=== PATIENT | female | born 2000 | race Two or more races ===

== ENCOUNTER 2023-08-02 20:14 | Outpatient (REF) | payer OTHER, SELFPAY ==
[2023-08-08 13:07] LABS: Age Gdln ACOG Testing Note (.); IGP, rfx Aptima HPV ASCU Note (.)
== END 2023-08-02 20:15 | disposition home or self-care (01) ==
LOC: LAB 20:14
PROVIDERS: Visit Provider Physician Assistant
DX: Z01.419 Encounter for gynecological examination (general) (routine) without abnormal findings (principal)
CPT/HCPCS: G0145

== ENCOUNTER 2023-12-27 15:34 | Outpatient (OUT) | payer OTHER, SELFPAY ==
[2023-12-29 07:10] LABS: HBsAg Screen Negative (Negative)
[2023-12-29 08:13] LABS: HIV Ab/p24 Ag Screen Non Reactive (Non Reactive)
[2023-12-29 11:10] LABS: Rapid Plasma Reagin, Quant Non Reactive titer (NonRea<1:1)
== END 2023-12-27 15:35 | disposition home or self-care (01) ==
LOC: LAB 15:36
PROVIDERS: Visit Provider Obstetrics & Gynecology
DX: Z20.2 Contact with and (suspected) exposure to infections with a predominantly sexual mode of transmission (principal)
CPT/HCPCS: 36415; 86592; 87340; 87389

== ENCOUNTER 2024-09-23 20:53 | Outpatient (REF) | payer OTHER, SELFPAY ==
--- OUTSIDE RECORDS SUMMARY | 2024-01-24 05:45 | XMS_ITS ---
Author Organization [facility] in [place] Address [address] [place] [address] Care Team Providers Care Cigarette Machine Operator Name Role Phone Maria Esther PARK, [place] Primary Care Provider Michelle Burns [facility] [phone] REASON FOR VISIT mts 6mo acne Encounters Encounter Location Date Provider Diagnosis [facility] [address] [place] [phone] 01/24/2024 Michelle Barrios Plan Of Treatment No Information Progress Notes * Hunter REYESB:2000 ([age] yo F)Acc No.[id number]:01/24/2024 UNLOCKED PROGRESS NOTE Established Patient: Klaudia FOSS Provider: Ana Paula Barrios PA-C :2000 A ge:23 Y S ex:Female Date:01/24/2024 Address:[address] [place] [address] [id number] Pcp:Shawnee Mayo MD Subjective: * Chief Complaints: * 1 . Mts 6mo acne. * Medical History: Objective: * Vitals: Assessment: Plan: * Treatment: * * Electronic signature of Shauna Barrios PA-C, [id number] on 09/23/2024 at 08:56 PM EDT Sign off status: Pending Visit Status: L ATE CANC (Late Cancel) * Provider: Ana Paula Barrios PA-C Date: 1 Generated for Vazquez osborne/Mitch/Pa on: 0 09/23/2024 08:56 PM EDT
--- OUTSIDE RECORDS SUMMARY | 2024-05-10 11:00 | XMS_ITS ---
Author Organization [facility] vices Address [address] [place] [phone] Care Team Providers Care Process Pumper Name Role Phone Rl Mary Jo Regalado [phone] REASON FOR VISIT CANCEL- Rest #18- ODL,B Social History Sex Assigned At : Social History Observation Description Sex Assigned At Female Encounters Encounter Location Date Provider Diagnosis [facility] [address] [place] [phone] 05/10/2024 Mary Jo Shine Plan Of Treatment Next Appt Details Provider Name:Elsa Duke sigrid, 12/12/2024 10:15:00 AM, [address] [place], [place], [phone], Progress Notes * Dior REYESJoseB:2000 ([age] yo F)Acc No.[id number]:05/10/2024 Patient: Klaudia FOSS Provider: Ilda Shine DMD :2000 A ge:23 Y S ex:Female Date:05/10/2024 Address:[address] [place], [place] [id number] Subjective: * Chief Complaints: * 1 . CANCEL- Rest #18- ODL,B. * Medical History: Objective: * Vitals: Assessment: Plan: * Treatment: * Billing Information: * Visit Code: * Procedure Codes: * Electronic signature of Tamika Shine DMD on 09/23/2024 at 08:56 PM EDT Sign off status: Pending * Provider: Ilda Shine DMD Date: 0 05/10/2024 Generated for Vazquez osborne/Mitch/Pa on: 0 09/23/2024 08:56 PM EDT
--- OUTSIDE RECORDS SUMMARY | 2024-05-16 08:30 | XMS_ITS ---
Author Organization [facility] in [place] Address [address] [place] [address] Care Team Providers Care Director Furniture Name Role Phone Maria Esther PARK, [place] Primary Care Provider Michelle Burns Unavailable [phone] REASON FOR VISIT mts A0008 Encounters Encounter Location Date Provider Diagnosis [facility] [address] [place] [phone] 05/16/2024 Michelle Barrios Plan Of Treatment No Information Progress Notes * Hunter REYESB:2000 ([age] yo F)Acc No.[id number]:05/16/2024 UNLOCKED PROGRESS NOTE Patient: Klaudia FOSS Provider: Ana Paula Barrios PA-C :2000 A ge:23 Y S ex:Female Date:05/16/2024 Address:[address] [place] [address] [id number] Pcp:Shawnee Mayo MD Check Out:12:19 PM EST Subjective: * Chief Complaints: * 1 . mts A0008. * Medical History: Objective: * Vitals: Assessment: Plan: * Treatment: * * Electronic signature of Shauna Barrios PA-C, [id number] on 09/23/2024 at 08:56 PM EDT Sign off status: Pending Visit Status: Phliipp HK (Check Out) * Provider: Ana Paula Barrios PA-C Date: 0 05/16/2024 Generated for Vazquez osborne/Mitch/Pa on: 0 09/23/2024 08:56 PM EDT
--- OUTSIDE RECORDS SUMMARY | 2024-07-29 08:45 | XMS_ITS ---
Author Organization [facility] vices Address [address] [place] [id number] Care Team Providers Care Hair Weaver Name Role Phone Rl Mary Jo Regalado [phone] REASON FOR VISIT Rest #18-ODL, B Social History Sex Assigned At : Social History Observation Description Sex Assigned At Female Encounters Encounter Location Date Provider Diagnosis [facility] [address] [place], [place] [phone] 07/29/2024 Mary Jo Shine Plan Of Treatment Next Appt Details Provider Name:Elsa Duke sigrid, 12/12/2024 10:15:00 AM, [address] [place], [place], [phone], Progress Notes * Dior REYESJoseB:2000 ([age] yo F)Acc No.[id number]:07/29/2024 Patient: Klaudia FOSS Provider: Ilda Shine DMD :2000 A ge:24 Y S ex:Female Date:07/29/2024 Address:[address] [place], [place] [id number] Subjective: * Chief Complaints: * 1 . Rest #18-ODL, B. * Medical History: Objective: * Vitals: Assessment: Plan: * Treatment: * Billing Information: * Visit Code: * Procedure Codes: * Electronic signature of Tamika Shine DMD on 09/23/2024 at 08:56 PM EDT Sign off status: Pending * Provider: Ilda Shine DMD Date: 0 07/29/2024 Generated for Vazquez osborne/Mitch/Giannaitting on: 0 09/23/2024 08:56 PM EDT
--- OUTSIDE RECORDS SUMMARY | 2024-09-23 14:00 | XMS_ITS | Encounter Summary ---
Author Organization [facility] Address [address] [place] [address] Care Team Providers Care Telephone Installer Name Role Phone Breanne Kirk MD Primary Care Provider [phone] Clarita Beckford Unavailable Reason for Visit * Reason Comments Well Women Visit Encounter Details Date Type Department Care Team (Late st Contact Info) Description 09/23/2024 2:00 PM EDT Office Visit [facility] [address] [address] Clarita Beckford PA [address] [facility] [address] [place], [facility] Well woman exam with routine gynecological exam Social History Tobacco Use Types Packs/Day Years Used Date Smoking Tobacco: Never Smokeless Tobacco: Never Alcohol Use Standard Drinks/Week Comments Never 0 (1 standard drink = 0.6 oz pure alcohol) Caffeine intake: 2-3 cups per day soda/pop AUDIT-C Answer Date Recorded Q1: How often do you have a drink containing alc ohol? 2-4 times a month 03/01/2023 Q2: How many drinks containi ng alcohol do you have on a typical day when you are drinking? 3 or 4 03/01/2023 Q3: How often do you have si x or more drinks on one occasion? Never 03/01/2023 PHQ-2 Answer Date Recorded Patient Health Questionnaire-2 Score 0 10/25/2022 Comments No Sex and Gender Information Value Date Recorded Sex Assigned at Female 06/29/2023 2:42 PM EDT Legal Sex Female 6:45 PM EDT Gender Identity Female 06/29/2023 2:42 PM EDT Sexual Orientation Not on file documented as of this encounter Last Filed Vital Signs Vital Sign Reading Time Taken Comments Blood Pressure 112/68 09/23/2024 2:30 PM EDT Pulse - - Temperature - - Respiratory Rate - - Oxygen Saturation - - Inhaled Oxygen Concentration - - Weight 58.9 kg (129 lb 12.8 oz) 09/23/2024 2:30 PM EDT Height - - Body Mass Index 20.95 12/27/2023 2:45 PM EDT documented in this encounter Progress Notes * JAYLA Shields - 09/23/2024 2:00 PM EDT Reason for Appointment: Patient ID: Klaudia Edmonds is a 24 y.o. female who presents for Well Women Visit Patient presents today for Annual Exam. MEDICATIONS No current outpatient medications ALLERGIES Allergies Allergen Reactions Salicylic Acid-Sulfur Sulfa Antibiotics Hives Other Reaction(s): Unknown PROBLEMS Active Ambulatory Problems Diagnosis Date Noted Acne vulgaris 10/25/2022 Late period 10/25/2022 Missed period 10/25/2022 Plantar wart, left foot 10/25/2022 Spotting 10/25/2022 Encounter for surveillance of contraceptive pills 07/06/2016 Resolved Ambulatory Problems Diagnosis Date Noted No Resolved Ambulatory Problems Past Medical History: Diagnosis Date Herpes genitalia HPV (human papilloma virus) infection Irregular periods HISTORY PAST MEDICAL HISTORY SOCIAL HISTORY Past Medical History: Diagnosis Date Acne vulgaris 10/25/2022 Herpes genitalia HPV (human papilloma virus) infection Irregular periods Social History Tobacco Use Smoking status: Never Smokeless tobacco: Never Vaping Use Vaping status: Every Day Substances: Nicotine, Flavoring Devices: Disposable Substance Use Topics Alcohol use: Never Comment: Caffeine intake: 2-3 cups per day soda/pop Drug use: Never FAMILY HISTORY Family History Problem Relation Name Age of Onset No Known Problems Mother Hypertension Father Heart disease Maternal Grandfather Hypertension Maternal Grandfather SURGICAL HISTORY No past surgical history on file. REVIEW OF SYSTEMS Review of Systems: Review of Systems Constitutional: Negative. HENT: Negative. Eyes: Negative. Respiratory: Negative. Cardiovascular: Negative. Gastrointestinal: Negative. Genitourinary: Negative. Musculoskeletal: Negative. Skin: Negative. Neurological: Negative. All other systems reviewed and are negative. Hematological: Negative. Endocrine: Negative. Allergic/Immunologic: Negative. OBJECTIVE Objective: Physical Exam Constitutional: Appearance: Normal appearance. Genitourinary: Right Adnexa: not tender and no mass present. Left Adnexa: not tender and no mass present. No cervical discharge. Breasts: Breasts are soft. Right: Normal. Left: Normal. HENT: Head: Normocephalic. Nose: Nose normal. Mouth/Throat: Mouth: Mucous membranes are moist. Cardiovascular: Rate and Rhythm: Normal rate. Pulmonary: Effort: Pulmonary effort is normal. Abdominal: General: Bowel sounds are normal. Palpations: Abdomen is soft. Musculoskeletal: General: Normal range of motion. Cervical back: Normal range of motion. Neurological: General: No focal deficit present. Mental Status: She is alert. Skin: General: Skin is warm and dry. Psychiatric: Mood and Affect: Mood normal. Vitals and nursing note reviewed. Exam conducted with a new accounts banking representative present. Vitals: Estimated body mass index is 20.95 kg/m?? as calculated from the following: Height as of 12/27/23: 5' 6 . Weight as of this encounter: 129 lb 12.8 oz. BP: 112/68 No LMP recorded. ASSESSMENT & PLAN ICD-10-CM 1. Well woman exam with routine gynecological exam Z01.419 Pap Smear Annual Exam: Patient presents today for an annual exam. Patient states she is doing well and has no complaints. Pap was obtained without difficulty. No orders of the defined types were placed in this encounter. Follow Up: Patient is to return in one year for annual unless needed otherwise. Documented by JAYLA Shields on behalf of: JAYLA Shields documented in this encounter Plan of Treatment Upcoming Encounters Date Type Department Care Team (Late st Contact Info) Description 09/25/2025 2:00 PM EDT Office Visit [facility] [address] [facility] [place] [address] Clarita Beckford PA [address] [place] [address] Scheduled Orders Name Type Priority Associated Diagnoses Orde r Schedule Pap Smear Pathology and Cytology Routine Well woman exam with routine gynecological exam Ordered: 09/23/2024 documented as of this encounter Visit Diagnoses Diagnosis Well woman exam with routine gynecological exam Routine gynecological examination documented in this encounter Care Teams Telephone Installer Relationship Specialty Start Date End Date Breanne Kirk MD [address] [place] [address] PCP - General Family Medicine 10/24/22 Clarita Beckford PA [address] [place] [address] [place] [address] [facility] 10/16/23 documented as of this encounter
--- OUTSIDE RECORDS SUMMARY | 2024-09-23 20:57 | XMS_ITS | Encounter Summary ---
Author Organization [facility] Address [address] [facility] [place] [address] Care Team Providers Care Manufacturing Test Engineer Name Role Phone Breanne Kirk MD Primary Care Provider [phone] Clarita Beckford Unavailable Encounter Details Date Type Department Care Team (Late st Contact Info) Description 09/23/2024 Bamboo flowsheet [facility] [address] [facility] [place] [address] Clarita Beckford PA [address] [facility] [address] [place], [place] [id number] Social History Tobacco Use Types Packs/Day Years [...] on file documented as of this encounter Plan of Treatment Upcoming Encounters Date Type Department Care Team (Late st Contact Info) Description 09/25/2025 2:00 PM EDT Office Visit [facility] [address] [facility] [place] [address] Clarita Beckford PA [address] [facility] [place] [address] documented as of this encounter Visit Diagnoses Not on filedocumented in this encounter Care Teams Manufacturing Test Engineer Relationship Specialty Start Date End Date Breanne Kirk MD [address] [place] [address] PCP - General Family Medicine 10/24/22 Clarita Beckford PA [address] [place] [address] [place] [address] PCP - [facility] 10/16/23 documented as of this encounter
--- OUTSIDE RECORDS SUMMARY | 2024-09-23 20:57 | XMS_ITS | Encounter Summary ---
Author Organization [facility] Address [address] [place] [address] Care Team Providers Care Manager Respiratory Care Name Role Phone Breanne Kirk MD Primary Care Provider [phone] Clarita Beckford Unavailable Encounter Details Date Type Department Care Team (Late st Contact Info) Description 04/23/2024 Orders Only [facility] [address] [place] [address] June Gaxiola LPN [address] [place] [address] Social History Tobacco Use Types Packs/Day Years [...] EDT Office Visit [facility] [address] [facility] [place] [address] Clarita Beckford PA [address] [place] [address] [place] [address] documented as of this encounter Procedures Procedure Name Priority Date/Time Associated Diagnosis Comments PAP SMEAR Routine 08/02/2023 12:00 AM EDT documented in this encounter Results * Pap Smear (08/02/2023 12:00 AM EDT) Swab Cervical swab / Unknown us [facility] Mellisa Nurse LAB CYTOLOGY ORDERABLES Final Result EXTERNAL LAB documented in this encounter Visit Diagnoses Not on filedocumented in this encounter Care Teams Manager Respiratory Care Relationship Specialty Start Date End Date Breanne Kirk MD [address] [place] [address] PCP - General Family Medicine 10/24/22 Clarita Beckford PA [address] [place] [address] [place] [address] PCP - [facility] 10/16/23 documented as of this encounter
--- OUTSIDE RECORDS SUMMARY | 2024-09-23 20:57 | XMS_ITS | Patient Health Record ---
Author Organization [facility] in [place] Address [address] [place] [address] Care Team Providers Care Loan Servicing Representative Name Role Phone Shawnee Mayo MD Primary Care Provider Michelle Burns [facility] [phone] Reason For Referral No Information Encounters Encounter Location Date Provider Diagnosis [facility] [address] [place] [address] 05/16/2024 Michelle Barrios [facility] [address] [place] [address] 07/02/2024 Michelle Barrios Other acne L70.8 and Scar conditions and fibrosis of skin L90.5 [facility] [address] [place] [address] 01/24/2024 Michelle Barrios Assessments Encounter Date Diagnosis (ICD Code) Assessment Notes Treatment Notes Treatment Clinical Notes Section Notes 07/02/2024 Other acne (ICD-10 - L70.8) 07/02/2024 Scar conditions and fibrosis of skin (ICD-10 - L90.5) Plan Of Treatment No Information Insurance Providers Payer Name Payer Address Payer Phone Subscriber Number Group Number Insured Name Patient Relationship to Insured Coverage Start Date Coverage End Date [employer] [place] [employer] [address] [facility] [place] [address] [phone] [id number] Klaudia Edmonds Self - patient is the insured 3
--- OUTSIDE RECORDS SUMMARY | 2024-09-23 20:57 | XMS_ITS | Clinical Summary ---
Author Organization [facility] Address [id number] [address] [place] [address] Care Team Providers Care Senior Quality Control Inspector Name Role Phone Shawnee Mayo MD Primary Care Provider [phone] Allergies Active Allergy Reactions Criticality Noted Date Comments Sulfa (Sulfonamide Antibiotics) 02/16 Medications metroNIDAZOLE (FLAGYL) 500 mg tablet Take 1 tablet (500 mg total) by mouth 2 (two) times a day. 14 tablet 0 Active Additional Information Patient not taking.Reported on 06/23/2020 spironolactone (ALDACTONE) 50 mg tablet Take 50 mg by mouth 2 (two) times a day with meals. Active sulfamethoxazol e-trimethoprim (BACTRIM) 400-80 mg per tablet Take 1 tablet by mouth daily. Active diphenhydrAMINE (BENADRYL) 25 mg capsule Take 1 capsule (25 mg total) by mouth every 6 (six) hours as needed for itching for up to 10 doses. 10 capsule 1 Active Additional Information Patient not taking.Reported on 03/12/2024 ibuprofen (MOTRIN) 800 mg tablet Take 1 tablet (800 mg total) by mouth every 6 (six) hours as needed for pain. 30 tablet 4 Active Active Problems No known active problems Social History Tobacco Use Types Packs/Day Years Used Date Smoking Tobacco: Former Cigarettes 0.5 1 Smokeless Tobacco: Never Tobacco Cessation:Ready to Q uit: No Alcohol Use Standard Drinks/Week Comments No 0 (1 standard drink = 0.6 oz pur e alcohol) Childcare Answer Date Recorded Childcare Unknown 09/24/2018 Employment Answer Date Recorded Employment Unknown 09/24/2018 Hunger Screening Answer Date Recorded Within the past 12 months we worried whether our food would run out before we got money to buy more. Never True 03/12/2024 Within the past 12 months th e food we bought just didn't last and we didn't have money to get more. Never True 03/12/2024 Purpose - Life Answer Date Recorded Purpose and direction in life Unknown Comments No Sex and Gender Information Value Date Recorded Sex Assigned at Not on file Legal Sex Female 1:16 PM EDT Gender Identity Not on file Sexual Orientation Not on file Last Filed Vital Signs Vital Sign Reading Time Taken Comments Blood Pressure 109/83 03/12/2024 12:11 PM EST Pulse 66 03/12/2024 12:11 PM EST Temperature 36.7 C (98 F) 03/12/2024 12:11 PM EST Respiratory Rate 18 03/12/2024 12:11 PM EST Oxygen Saturation 100% 03/12/2024 12:11 PM EST Inhaled Oxygen Concentration - - Weight 62.6 kg (138 lb) 03/12/2024 12:11 PM EST Height 167.6 cm (5' 6 ) 03/12/2024 12:11 PM EST Body Mass Index 22.27 03/12/2024 12:11 PM EST Plan of Treatment Health Maintenance Due Date Last Done Comments Depression Screening 2010 Pap Smear 2019 DTaP,Tdap and Td Vaccines (6 - Td or Tdap) 02/10/2021 02/10/2011, 07/30/2003, 01/26/2000, Additional history exists Influenza Vaccine 12/16/2024 Adult BMI Screening 03/12/2025 03/12/2024 Tobacco Screening 03/12/2025 03/12/2024 Medical Devices Not on file Insurance [employer] Care Teams Senior Quality Control Inspector Relationship Specialty Start Date End Date Shawnee Mayo MD [address] [place] [address] PCP - General Family Medicine 03/12/24
--- OUTSIDE RECORDS SUMMARY | 2024-09-23 20:57 | XMS_ITS | Clinical Summary ---
Author Organization [facility] Address [address] [place] [address] Care Team Providers Care Aquatics Specialist Name Role Phone Breanne Kirk MD Primary Care Provider [phone] Clarita Beckford Unavailable Allergies Active Allergy Reactions Criticality Noted Date Comments Salicylic Acid-Sulfur 10/19/2022 Sulfa Antibiotics Hives 10/25/2022 Other Reaction(s): Unknown Medications No known medications Active Problems Problem Noted Date Diagnosed Date Acne vulgaris 10/25/2022 Late period 10/25/2022 Missed period 10/25/2022 Plantar wart, left foot 10/25/2022 Spotting 10/25/2022 Encounter for surveillance of contraceptive pill s 07/06/2016 Encounters Date Type Department Care Team Description 09/23/2024 2:00 PM EDT Office Visit [facility] [address] [place] [address] Clarita Beckford PA Well woman exam with routine gynecological exam 09/23/2024 Bamboo flowsheet [facility] [address] [place] [address] Clarita Beckford PA 08/16/2024 [address]phone [facility] [address] [place] [place] [address] Blaine Pak DO from Last 3 Months Immunizations Immunization Administration Dates Next Due HPV, Quadrivalent 02/10/2011 Tdap 02/10/2011 Family History Medical History Relation Name Comments Hypertension Father Heart disease Maternal Grandfather Hypertension Maternal Grandfather No Known Problems Mother Relation Name Status Comments Father Alive Maternal Grandfather Mother Alive Sister 4 Social History Tobacco Use Types Packs/Day Years Used Date Smoking Tobacco: Never Smokeless Tobacco: Never Tobacco Cessation:Counseling Given: Not Answered Alcohol Use Standard Drinks/Week Comments Never 0 [...] PM EDT Sexual Orientation Not on file Last Filed Vital Signs Vital Sign Reading Time Taken Comments Blood Pressure 112/68 09/23/2024 2:30 PM EDT Pulse 66 10/25/2022 2:02 PM EDT Temperature 36.4 C (97.5 F) 10/25/2022 2:02 PM EDT Respiratory Rate - - Oxygen Saturation - - Inhaled Oxygen Concentration - - Weight 58.9 kg (129 lb 12.8 oz) 09/23/2024 2:30 PM EDT Height 167.6 cm (5' 6 ) 12/27/2023 2:45 PM EDT Body Mass Index 20.95 12/27/2023 2:45 PM EDT Plan of Treatment Upcoming Encounters Date Type Department Care Team (Late st Contact Info) Description 09/25/2025 2:00 PM EDT Office Visit [facility] [address] [facility] [address] Clarita Beckford PA [address] [facility] [address] [place], [place] [phone] Health Maintenance Due Date Last Done Comments Influenza Vaccine (Season Ended) 2024 Insurance [employer] Care Teams Aquatics Specialist Relationship Specialty Start Date End Date Breanne Kirk MD [address] [place], [place] [phone] PCP - General Family Medicine 10/24/22 Clarita Beckford PA [address] [place] [address] [place] [address] PCP - [facility] 10/16/23
--- OUTSIDE RECORDS SUMMARY | 2024-09-23 20:57 | XMS_ITS | Patient Health Record ---
Author Organization [facility] vices Address [address], [place] [id number] Care Team Providers Care Land Commissioner Name Role Phone Mary Jo Shine Sabine [phone] Allergies Allergen (clinical drug ingredient) Drug/Non Drug Allergy documented on EMR Reaction Allergy Type Onset Date Status Substance with sulfonamide structure and antibacterial mechanism of action (substance) Sulfa Antibiotics Unknown Drug Allergy Active Reason For Referral No Information Social History Sex Assigned At : Social History Observation Description Sex Assigned At Female Tobacco Control (Standard) Question Answer Notes Additional Findings: Tobacco user e-cigarette Problems Problem Type SNOMED Code ICD Code Onset Dates Problem Status W/U Status Risk Notes Problem Cigarette nicotine dependence without complication (F17.210) Active confirmed Vital Signs Heart Rate 61 /min 09/12/2024 Height-cm 167.64 cm 09/12/2024 Blood pressure diastolic 67 mm Hg 09/12/2024 Weight-kg 63.5 kg 09/12/2024 Height 66 in 09/12/2024 Blood pressure systolic 114 mm Hg 09/12/2024 Weight 140 lbs 09/12/2024 BMI 22.59 kg/m2 09/12/2024 Encounters Encounter Location Date Provider Diagnosis [facility] [address] [place], [place] [id number] 03/12/2024 Mary Jo Shine Dental caries into dentine K02.62 ; Encounter for screening for dental disorders Z13.84 ; Caries of dentin K02.62 ; Encounter for dental examination and cleaning with abnormal findings Z01.21 and Encounter for dental examination and cleaning without abnormal findings Z01.20 [facility] [address] [place], [place] [id number] 09/12/2024 Mary Jo Shine Vapes nicotine con taining substance Z72.0 ; Encounter for dental examination and cleaning with abnormal findings Z01.21 ; Caries of dentin K02.62 and Cigarette nicotine dependence without complication F17.210 Assessments Encounter Date Diagnosis (ICD Code) Assessment Notes Treatment Notes Treatment Clinical Notes Section Notes 03/12/2024 Dental caries into dentine (ICD-10 - K02.62) 09/12/2024 Vapes nicotine containing substance (ICD-10 - Z72.0) 09/12/2024 Encounter for dental examination and cleaning with abnormal findings (ICD-10 - Z01.21) 03/12/2024 Encounter for screening for dental disorders (ICD-10 - Z13.84) 09/12/2024 Caries of dentin (ICD-10 - K02.62) 03/12/2024 Caries of dentin (ICD-10 - K02.62) 03/12/2024 Encounter for dental examination and cleaning with abnormal findings (ICD-10 - Z01.21) 09/12/2024 Cigarette nicotine dependence without complication (ICD-10 - F17.210) Patient provided with [id number] phone line. 03/12/2024 Encounter for dental examination and cleaning without abnormal findings (ICD-10 - Z01.20) Plan Of Treatment Next Appt Details Provider Name:Elsa matta, 12/12/2024 10:15:00 AM, [address] [place] [address], [phone], Insurance Providers Payer Name Payer Address Payer Phone Subscriber Number Group Number Insured Name Patient Relationship to Insured Coverage Start Date Coverage End Date [employer] [facility] [address] [address] [place] [address] [id number] Klaudia Edmonds Self - patient is the insured 4 D[employer] after [employer] [address] [place], [place] [id number] Klaudia Edmonds Self - patient is the insured 4
--- OUTSIDE RECORDS SUMMARY | 2024-09-23 21:08 | XMS_ITS | CCD ---
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 Comment on above: Performed By: #### U RCX #### [facility] [address] [place] [address] Dr. Josh Mora RBC NONE SEEN Abnormal 0-2 [facility] Comment on above: Performed By: #### U RCX #### [facility] [address] [place] [address] Dr. Josh Mora SPEC GRAVITY >=1.030 Abnormal 1.005-<=1.025 [facility] Comment on above: Performed By: #### U RCX #### [facility] [address] [place] [address] Dr. Josh Mora UA PROTEIN Negative Normal NEGATIVE/ TRACE [facility] Comment on above: Performed By: #### U RCX #### [facility] [address] [place] [address] Dr. Josh Mora Urobilinogen Qn (U) 0.2 {Lacey'U}/dL Normal 0.2 - 1. 0 [facility] Comment on above: Performed By: #### U RCX #### [facility] [address] [place] [address] Dr. Josh Mora WBC NONE SEEN Normal NONE SEEN [facility] Comment on above: Performed By: #### U RCX #### [facility] [address] [place] [address] Dr. Josh Mora CHLAMYDIA/GONOCOCCUS DAIN ( AB/URINE/PAPon 05-15-2021 Chlamydia trachomatis, DAIN Negative Normal Negative [facility] Comment on above: Performed By: #### C T/NGNA #### [facility] [address] [place] [address] Dr. Josh Mora Neisseria gonorrhoeae, DAIN Negative Normal Negative [facility] Comment on above: Performed By: #### C T/NGNA #### [facility] [address] [place] [address] Dr. Josh Mora VAGINITIS/VAGINOSIS DNA PROB Eric 05-14-2021 Amalia species Negative Normal Negative [facility] Comment on above: Performed By: #### V AGINT #### [facility] [address] [place] [address] Dr. Josh Mora Gardnerella vaginalis Negative Normal Negative [facility] Comment on above: Performed By: #### V AGINT #### [facility] [address] [place] [address] Dr. Josh Mora Trichomonas vaginalis Negative Normal Negative [facility] Comment on above: Performed By: #### V AGINT #### [facility] [address] [place] [address] Dr. Josh Mora Vital Signs Date Time Vital Sign Value Performing Clinician Jeanne mazay 09-23-2024 14:30-0400 Body mass index (BMI) [Ratio] 20.95 kg/m2 Clarita DICKERSON Work Phone: [facility] 09-23-2024 14:30-0400 Body weight 58.88 kg Clarita Lawson PA Work Phone: [facility] 09-23-2024 14:30-0400 Diastolic blood pressure 68 mm[Hg] Clarita Shakeel PA Work Phone: [facility] 09-23-2024 14:30-0400 Systolic blood pressure 112 mm[Hg] Clarita Lawson PA Work Phone: [facility] 04-29-2024 09:20-0500 Body mass index (BMI) [Ratio] 22.24 kg/m2 Clarita Shakeel PA Work Phone: [facility] 04-29-2024 09:20-0500 Body weight 62.51 kg Clarita Lawson PA Work Phone: [facility] 04-29-2024 09:20-0500 Diastolic blood pressure 80 mm[Hg] Clarita Lawson PA Work Phone: [facility] 04-29-2024 09:20-0500 Systolic blood pressure 120 mm[Hg] Clarita Shakeel PA Work Phone: [facility] 12-27-2023 14:45-0400 Body height 167.6 cm Scott Mellisa DO Work Phone: [facility] 12-27-2023 14:45-0400 Body mass index (BMI) [Ratio] 21.47 kg/m2 Scott Mellisa DO Work Phone: [facility] 12-27-2023 14:45-0400 Body weight 60.33 kg Scott Mellisa DO Work Phone: [facility] 12-27-2023 14:45-0400 Diastolic blood pressure 76 mm[Hg] Scott Mellisa DO Work Phone: [facility] 12-27-2023 14:45-0400 Systolic blood pressure 112 mm[Hg] Scott Mellisa DO Work Phone: [facility] Healthcare Encounters Encounter Date Encounter Type Care Provider Facility Start: 09-23-2024 End: 09-23-2024 Bamboo flowsheet Clarita DICKERSON Work Phone: [facility] Start: 09-23-2024 End: 09-23-2024 Bamboo flowsheet Clarita DICKERSON Work Phone: [facility] Start: 09-23-2024 End: 09-23-2024 Patient encounter procedure Clarita DICKERSON Work Phone: [facility] Work Phone: Start: 09-23-2024 End: 09-23-2024 Periodic preventive med est patient 18-39 yrs Clarita DICKERSON Work Phone: [facility] Comment on above: Well woman exam with routine gynecological exam Start: 04-29-2024 End: 04-29-2024 Bamboo flowsheet Clarita DICKERSON Work Phone: [facility] Start: 04-29-2024 End: 04-29-2024 Bamboo flowsheet Clarita DICKERSON Work Phone: [facility] Start: 04-29-2024 End: 04-29-2024 ambulatory CLARITA LAWSON Not Available Start: 04-29-2024 End: 04-29-2024 Office outpatient visit 15 minutes Clarita DICKERSON Work Phone: [facility] Comment on above: Exposure to STD; Vaginal discharge Start: 03-12-2024 End: 03-12-2024 Emergency department patient visit [facility] Start: 12-27-2023 End: 12-27-2023 Office outpatient visit 15 minutes Scott Mellisa DO Work Phone: [facility] Comment on above: Vaginal discharge; Screen for STD (sexually transmitted disease); Yeast infection; Sexually transmitted disease exposure Start: 12-27-2023 End: 12-27-2023 ambulatory SCOTT MELLISA Not Available Start: 12-27-2023 End: 12-27-2023 Bamboo flowsheet Scott Mellisa DO Work Phone: [facility] Start: 12-27-2023 End: 12-29-2023 Clinisync Result Encounter Scott Mellisa DO Work Phone: [facility] Unsolicited Start: 12-27-2023 End: 12-29-2023 External Result Encounter Scott Pak DO Work Phone: [facility] Start: 12-27-2023 End: 12-29-2023 External Result Encounter Scott Pak DO Work Phone: [facility] Start: 08-02-2023 End: 08-02-2023 ambulatory CLARITA LAWSON Not Available Start: 06-29-2023 End: 06-29-2023 ambulatory CLARITA LAWSON Not Available Start: 04-21-2022 End: 04-21-[address] SCOTT PAK Facility:[facility] Start: 04-20-2022 End: 04-20-[address] SCOTT PAK Facility:[facility] Start: 01-20-2022 End: 01-20-[address] SCOTT PAK Facility:[facility] Start: 08-26-2021 End: 08-26-[address] SCOTT PAK Facility:[facility] Start: 06-07-2021 End: 06-08-[address] SCOTT PAK Facility:[facility] Start: 05-12-2021 End: 05-12-[address] ALBIN MEMBRENO Facility:[facility] Start: 05-01-[address] ALBIN MEMBRENO Faci lity:[facility] Procedures Date Procedure Procedure Detail Performing Clinician Start: 12-27-2023 URETHRITIS/DISCHARGE PLUS VAGINITIS (HTRX) Scott Pak DO Work Phone: Start: 12-27-2023 HIV AB/P24 AG WITH REFLEX Scott Pak DO Work Phone: Plan of Treatment Date Care Activity Detail Author Start: 09-25-2025 End: 09-25-2025 Patient encounter procedure 09/25/2025 2:00 PM EDT Office Visit [facility] [address] [place] [id number] Clarita Lawson, PA [address] [place], [place] [id number] [facility] Start: 12-16-2024 Influenza vaccination Influenz a Vaccine (Season Ended) [facility] Start: 08-05-2024 End: 08-05-2024 Patient encounter procedure 08/05/2024 11:00 AM EDT Office Visit [facility] [address] [place] [id number] Scott Pak, DO [address] [place] [address] [facility] Start: 12-27-2023 End: 12-27-2023 Patient encounter procedure 12/27/2023 2:20 PM EDT Office Visit [facility] [address] [place] [phone] Scott Pak, DO [address] [facility] [place] [address] Arrived [facility] Comment on above: Arrived Start: 12-17-2023 Influenza vaccination Influenza Vacc ine (#1) [facility] CHLAMYDIA TRACHOMATI S (GENITO/STI) CHLAMYDIA TRACHOMATIS (GENITO/STI) Lab Routine Vaginal discharge Screen for STD (sexually transmitted disease) Ordered: 12/27/2023 [facility] Comment on above: Ordered: 12/27/2023 CHLAMYDIA TRACHOMATI S (GENITO/STI) CHLAMYDIA TRACHOMATIS (GENITO/STI) Lab Routine Exposure to STD Vaginal discharge Ordered: 04/29/2024 [facility] Comment on above: Ordered: 04/29/2024 Cytology Cervical or vaginal smear or scraping study Pap Smear Pathology and Cytology Routine Well woman exam with routine gynecological exam Ordered: 09/23/2024 [facility] Work Phone: Comment on above: Ordered: 09/23/2024 Hepatitis B virus surface Ag [Presence] in Serum or Plasma by Immunoassay Hepatitis B surface antigen Lab Routine Sexually transmitted disease exposure Ordered: 12/27/2023 [facility] Comment on above: Ordered: 12/27/2023 HIV-1/HIV-2 antigen/antibody combination immunoassay HIV-1 and HIV-2 antibodies Lab Routine Sexually transmitted disease exposure Ordered: 12/27/2023 [facility] Comment on above: Ordered: 12/27/2023 Neisseria gonorrhoea e DNA [Presence] in Unspecified specimen by DAIN with probe detection Neisseria gonorrhea DNA probe, direct Lab Routine Vaginal discharge Screen for STD (sexually transmitted disease) Ordered: 12/27/2023 [facility] Comment on above: Ordered: 12/27/2023 Neisseria gonorrhoea e DNA [Presence] in Unspecified specimen by DAIN with probe detection Neisseria gonorrhea DNA probe, direct Lab Routine Exposure to STD Vaginal discharge Ordered: 04/29/2024 [facility] Comment on above: Ordered: 04/29/2024 Reagin Ab [Presence] in Serum by RPR RPR Lab Routine Sexually transmitted disease exposure Ordered: 12/27/2023 [facility] Comment on above: Ordered: 12/27/2023 SURESWAB(R) ADVANCED VAGINITIS PLUS, TMA SURESWAB(R) ADVANCED VAGINITIS PLUS, TMA Pathology and Cytology Routine Vaginal discharge Screen for STD (sexually transmitted disease) Ordered: 12/27/2023 [facility] Work Phone: Comment on above: Ordered: 12/27/2023 SURESWAB(R) ADVANCED VAGINITIS PLUS, TMA SURESWAB(R) ADVANCED VAGINITIS PLUS, TMA Pathology and Cytology Routine Exposure to STD Vaginal discharge Ordered: 04/29/2024 [facility] Work Phone: Comment on above: Ordered: 04/29/2024 Immunizations Immunization Date Immunization Notes Care Provider [facility] 02-10-2011 human papilloma viru s vaccine, quadrivalent Scott Mellisa DO Work Phone: [facility] 02-10-2011 tetanus toxoid, redu katey diphtheria toxoid, and acellular pertussis vaccine, adsorbed Scott Mellisa DO Work Phone: [facility] Payers Date Payer Category Payer Unknown [id number] 2018 Medicaid [employer] [place] [employer] [id number] 2018-Present [address] [place] [id number] 2018 Medicaid (Managed Care) [facility] MEDICAID [id number] 1998 Unknown [id number]. 593 1998 Unknown [id number]. 593 1998 Unknown [id number] [id number]. 593 1998 Unknown [id number] [id number]. 593 1998 Unknown [id number] [id number]. 593 1998 Unknown [id number] [id number]. 593 1998 Unknown [id number] [id number]. 593 1998 Unknown [id number] [id number]. 1286 1998 Unknown [id number] [id number]. 1259 1998 Unknown [id number] [id number]. 1259 1998 Unknown [id number] [id number]. 1259 1998 Unknown [id number] [id number]. 1259 1959 Unknown [id number] Social History Date Type Detail Facility Start: 10-25-2022 Tobacco smoking status NHIS Never sm oked tobacco [facility] Start: 10-25-2022 Tobacco use and exposure Smoke less tobacco non-user [facility] Start: 12-27-2023 End: 04-29-2024 Alcoholic beverage intake Lifetime non-drinker (finding) [facility] Start: 10-25-2022 End: 03-01-2023 History of Social function [facility] Start: 10-25-2022 End: 03-01-2023 Alcohol Use Disorder Identification Test - Consumption [AUDIT-C] [facility] How often to you hav e a drink containing alcohol? 2-4 times a month [facility] How many standard dr inks containing alcohol do you have on a typical day? 3 or 4 [facility] How often do you hav e 6 or more drinks on 1 occasion? Never [facility] Start: 03-01-2023 Alcohol Comment Caffeine intak e: 2-3 cups per day soda/pop [facility] Start: 2000 Sex assigned at Female [facility] Start: 06-29-2023 Gender identity Identifies as female gender (finding) [facility] History of Present illness Narrative 09-23-2024 JAYLA Shields - 09/23/2024 2:00 PM EDT Note Date & Type Note Facility 09-23-2024 History of Presen t illness Narrative Reason for Appointment: Patient ID: Klaudia Edmonds [...] nursing note reviewed. Exam conducted with a cloth packer present. Vitals: Estimated body mass index is 20.95 kg/m as calculated from the following: Height as [...] of: JAYLA Shields documented in this encounter [facility] History of Present illness Narrative 04-29-2024 JAYLA Shields - 04/29/2024 8:50 AM EST Note Date & Type Note Facility 04-29-2024 History of Presen t illness Narrative Images from the original note were not included. Reason for Appointment: Patient ID: Klaudia Edmonds is a 23 y.o. female who presents for STI Screening Patient presents today for Acute Visit. MEDICATIONS Current Outpatient Medications Medication Instructions acyclovir (ZOVIRAX) 400 mg, Oral, Daily valACYclovir (VALTREX) 500 mg, Oral, 3 times daily ALLERGIES Allergies Allergen Reactions Salicylic Acid-Sulfur Sulfa Antibiotics Hives PROBLEMS Active Ambulatory Problems Diagnosis Date Noted [...] Maternal Grandfather Hypertension Maternal Grandfather SURGICAL HISTORY History reviewed. No pertinent surgical history. REVIEW OF SYSTEMS Review of Systems: Review of Systems Constitutional: Negative. HENT: Negative. Eyes: Negative. Respiratory: Negative. Cardiovascular: Negative. Gastrointestinal: Negative. Genitourinary: Negative. Musculoskeletal: Negative. Skin: Negative. Neurological: Negative. All other systems reviewed and are negative. Hematological: Negative. Endocrine: Negative. Allergic/Immunologic: Negative. OBJECTIVE Objective: Physical Exam Constitutional: Appearance: Normal appearance. She is normal weight. Genitourinary: Genitourinary Comments: Herpectic lesions noted Right Labia: rash. Left Labia: rash. HENT: Head: Normocephalic. Cardiovascular: Rate and Rhythm: Normal rate. Pulses: Normal pulses. Pulmonary: Effort: Pulmonary effort is normal. Breath sounds: Normal breath sounds. Abdominal: Palpations: Abdomen is soft. Musculoskeletal: General: Normal range of motion. Neurological: General: No focal deficit present. Mental Status: She is alert and oriented to person, place, and time. Psychiatric: Mood and Affect: Mood normal. Behavior: Behavior normal. Thought Content: Thought content normal. Judgment: Judgment normal. Vitals and nursing note reviewed. Vitals: Estimated body mass index is 22.24 kg/m as calculated from the following: Height as of 12/27/23: 5' 6 . Weight as of this encounter: 137 lb 12.8 oz. BP: 120/80 Patient's last menstrual period was 04/22/2024. ASSESSMENT & PLAN ICD-10-CM 1. Exposure to STD Z20.2 SURESWAB(R) ADVANCED VAGINITIS PLUS, TMA CHLAMYDIA TRACHOMATIS (GENITO/STI) Neisseria gonorrhea DNA probe, direct valACYclovir (Valtrex) 500 MG tablet DISCONTINUED: valACYclovir (Valtrex) 500 MG tablet 2. Vaginal discharge N89.8 SURESWAB(R) ADVANCED VAGINITIS PLUS, TMA CHLAMYDIA TRACHOMATIS (GENITO/STI) Neisseria gonorrhea DNA probe, direct valACYclovir (Valtrex) 500 MG tablet DISCONTINUED: valACYclovir (Valtrex) 500 MG tablet Patient presents for herpes outbreak and need for cultures. Patient states she broke out last week and called office. Valtrex was sent to pharmacy, pt refill sent today as well in case of another outbreak. She has new partner and concerned for sti infection. Patient will be notified if further treatment needed Documented by JAYLA Shields on behalf of: JAYLA Shields documented in this encounter [facility] History of Present illness Narrative 12-27-2023 Franchesca Landaverde, JAZMIN - 12/27/2023 2:20 PM EDT Note Date & Type Note Facility 12-27-2023 History of Presen t illness Narrative Reason for Appointment: Patient ID: Klaudia Edmonds is a 23 y.o. female who presents for STI Screening Patient presents today for STD Check. MEDICATIONS Current Outpatient Medications Medication Instructions acyclovir (Zovirax) 400 MG tablet take 1 tablet by mouth every morning and 1 tablet BEFORE BEDTIME ALLERGIES Allergies Allergen Reactions Salicylic Acid-Sulfur Sulfa Antibiotics Hives PROBLEMS Active Ambulatory Problems Diagnosis Date Noted [...] Maternal Grandfather Hypertension Maternal Grandfather SURGICAL HISTORY History reviewed. No pertinent surgical history. REVIEW OF SYSTEMS Review of Systems: Review of Systems Constitutional: Negative. HENT: Negative. Eyes: Negative. Respiratory: Negative. Cardiovascular: Negative. Gastrointestinal: Negative. Genitourinary: Negative. Musculoskeletal: Negative. Skin: Negative. Neurological: Negative. All other systems reviewed and are negative. Hematological: Negative. Endocrine: Negative. Allergic/Immunologic: Negative. OBJECTIVE Objective: Physical Exam Constitutional: Appearance: Normal appearance. She is well-developed. Genitourinary: Vulva normal. Cardiovascular: Rate and Rhythm: Normal rate and regular rhythm. Pulmonary: Effort: Pulmonary effort is normal. Breath sounds: Normal breath sounds. Abdominal: General: Bowel sounds are normal. There is no distension. Palpations: Abdomen is soft. Tenderness: There is no abdominal tenderness. There is no guarding or rebound. Musculoskeletal: General: No swelling. Normal range of motion. Right lower leg: No edema. Left lower leg: No edema. Neurological: Mental Status: She is alert and oriented to person, place, and time. Skin: General: Skin is warm and dry. Psychiatric: Mood and Affect: Mood normal. Behavior: Behavior normal. Vitals and nursing note reviewed. Exam conducted with a cloth packer present. Vitals: Estimated body mass index is 21.47 kg/m as calculated from the following: Height as of this encounter: 5' 6 . Weight as of this encounter: 133 lb. BP: 112/76 Patient's last menstrual period was 11/28/2023. ASSESSMENT & PLAN ICD-10-CM 1. Vaginal discharge N89.8 SURESWAB(R) ADVANCED VAGINITIS PLUS, TMA CHLAMYDIA TRACHOMATIS (GENITO/STI) Neisseria gonorrhea DNA probe, direct 2. Screen for STD (sexually transmitted disease) Z11.3 SURESWAB(R) ADVANCED VAGINITIS PLUS, TMA CHLAMYDIA TRACHOMATIS (GENITO/STI) Neisseria gonorrhea DNA probe, direct Pt presents with vaginal discharge and itching. Cultures obtained. Rx for flagyl and diflucan. Pt voiced understanding. Pt desires labs as well. Pt to return for annual unless needed sooner. Documented by Franchesca Landaverde LPN on behalf of: Scott Pak DO documented in this encounter [facility] Evaluation note Note Date & Type Note Facility Evaluation note Diagnosis Vaginal discharge Leukorrhea, not specified as infective Screen for STD (sexually transmitted disease) Screening examination for venereal disease Yeast infection Sexually transmitted disease exposure Contact with or exposure to venereal diseases documented in this encounter [facility] Evaluation note Note Date & Type Note Facility Evaluation note Diagnosis Exposure to STD Vaginal discharge Leukorrhea, not specified as infective documented in this encounter [facility] Evaluation note Note Date & Type Note Facility Evaluation note Diagnosis Well woman exam with routine gynecological exam Routine gynecological examination documented in this encounter [facility] Summary Purpose Family History No Family History Records FoundNo Family History Records FoundNo Family History Records FoundNo Family History Records Found Advance Directives No Advanced Directives Records FoundNo Advanced Directives Records FoundNo Advanced Directives Records FoundNo Advanced Directives Records Found Additional Source Comments INFORMATION SOURCE (unrecogn ized section and content) DATE CREATED AUTHOR 06/12/2021 [facility] Me dical Specialist DATE CREATED AUTHOR AUTHOR'S ORGANIZ ATION 04/25/2022 [facility] DATE CREATED AUTHOR AUTHOR'S ORGANIZ ATION 03/15/2024 [facility] DATE CREATED AUTHOR AUTHOR'S ORGANIZ ATION 05/02/2024 [facility] dical Specialists EPIC Care Teams (unrecognized sec tion and content) Outpatient Program Coordinator Relationship Specialty Start Date End Date Breanne Kirk MD [address] [facility] [place] [address] PCP - General [facility] 10/24/22 Clarita Lawson PA [address] [place] [address] [place] [address] PCP - [facility] 10/16/23 Outpatient Program Coordinator Relationship Specialty Start Date End Date Breanne Kirk MD [address] [facility] [place], [place] [id number] PCP - General [facility] Medicine 10/24/22 Clarita Lawson PA [address] [place] [address] [place] [address] PCP - [facility] 10/16/23 Outpatient Program Coordinator Relationship Specialty Start Date End Date Breanne Kirk MD [address] [place] [address] PCP - General Family [facility] 10/24/22 Clarita Lawson PA [address] [place] [address] [place] [address] PCP - [facility] 10/16/23 Outpatient Program Coordinator Relationship Specialty Start Date End Date Breanne Kirk MD [address] [facility] [place] [address] PCP - [facility] 10/24/22 Clarita Lawson PA [address] [place] [address] [place] [address] PCP - [facility] 10/16/23 Outpatient Program Coordinator Relationship Specialty Start Date End Date Breanne Kirk MD [address] [facility] [place] [address] PCP - [facility] 10/24/22 Clarita Lawson PA [address] [place] [address] [place] [address] PCP - [facility] 10/16/23 Outpatient Program Coordinator Relationship Specialty Start Date End Date Breanne Kirk MD [address] [facility] [place] [address] PCP - [facility] 10/24/22 Clarita Lawson PA [address] [place] [address] [place] [address] PCP - [facility] 10/16/23 Reason for Visit (unrecogniz ed section and content) Reason Comments STI Screening Reason Comments [facility] Visit FOR RECORDS PERTAINING TO PATIENTS WHO ARE OR HAVE BEEN ENROLLED IN A CHEMICAL DEPENDENCY/SUBSTANCEABUSE PROGRAM, SOME INFORMATION MAY BE OMITTED. This clinical summary was aggregated from multiple sources. Caution should be exercised in using it in the provision of clinical care. This summary normalizes information from multiple sources, and as a consequence, information in this document may materially change the coding, format and clinical context of patient data. In addition, data may be omitted in some cases. CLINICAL DECISIONS SHOULD BE BASED ON THE PRIMARY CLINICAL RECORDS. [facility] [employer] [facility] provides no warranty or guarantee of the accuracy or completeness of information in this document.
[2024-09-26 10:08] LABS: Age Gdln ACOG Testing Note (.); IGP, rfx Aptima HPV ASCU Note (.)
== END 2024-09-23 20:54 | disposition home or self-care (01) ==
LOC: LAB 20:53
PROVIDERS: Visit Provider Physician Assistant
DX: Z01.419 Encounter for gynecological examination (general) (routine) without abnormal findings (principal)
CPT/HCPCS: 88175